=== PATIENT | female | born 1955 | race Caucasian/White ===

== ENCOUNTER → 2019-10-04 | Outpatient (CLI) | payer OTHER ==
--- NOTE | 2019-10-04 15:55 | RADIOLOGY REPORT (SQ) ---
EXAM DESCRIPTION: UGI W/ SINGLE CONTRAST COMPLETED DATE/TIME: 10/04/2019 9:13 am REASON FOR STUDY: MORBID OBESITY (E66.01), HEARTBURN (R12) E66.01 MORBID (SEVERE) OBESITY DUE TO EX CESS CALORIES R12 HEARTBURN COMPARISON: None. TECHNIQUE: Under fluoroscopic guidance, patient ingested thick and thin barium. Fluoroscopic spot im ages and routine radiographic images acquired and stored on PACS. 12 MM BARIUM TABLET GIVEN: No LIMITATIONS: None. FLUOROSCOPY TIME: FLUORO TIME: 2.5 minutes 13 images saved to PACS. FINDINGS: NEUROMUSCULAR COORDINATION OF SWALLOW: Normal. No aspiration. ESOPHAGEAL MOTILITY: Normal peristalsis. No esophageal spasm. ESOPHAGEAL MUCOSA: Normal mucosa without masses or ulceration. Mild retention of barium in the esoph ford due to gastric band. GASTRO-ESOPHAGEAL JUNCTION: No hiatal hernia or reflux. Mild delay of barium passing into the stomac h through gastric band. STOMACH: Normal without masses or ulcerations. GASTRIC OUTLET: No delay in emptying. Normal pylorus. DUODENAL BULB: Normal distention. No spasm or ulceration. DUODENUM: Mucosa normal. No extrinsic masses or malrotation. PROXIMAL JEJUNUM: Normal mucosal pattern. No dilatation, segmentation, strictures or masses. NON-GI TRACT STRUCTURES: No significant finding. OTHER: No other significant finding. IMPRESSION: MILD DELAY OF BARIUM PASSING INTO THE STOMACH THROUGH THE GASTRIC BAND, CAUSING MILD BAR IUM RETENTION IN THE ESOPHAGUS. OTHERWISE UNREMARKABLE STUDY. COMMENT: NONE Quality ID [id number]: Final reports for procedures using fluoroscopy that document radiation exposure fely tomasa, or exposure time and number of fluorographic images (if radiation exposure indices are not avail able) TECHNICAL DOCUMENTATION: JOB ID: [id number] [employer]- All Rights Reserved Reading location - IP/workstation name: [email or web address]
== END ==
LOC: RAD 07:53
PROVIDERS: ATTEND Surgery
DX: R12 Heartburn (principal); E66.01 Morbid (severe) obesity due to excess calories
CPT/HCPCS: 74240